=== PATIENT | female | born 1970 | race African-American/Black ===

== ENCOUNTER 2020-12-08 14:37 | Inpatient (IN) | payer OTHER ==
[~2020-12-08 14:37] MED LIST: ADMELOG100 UNIT/1 SC; FLEXERIL5 MG PO; HUMALOG 75100 UNIT/M SC; LANTUS **100 UNITS/ SC; LIPITOR40 MG PO; METFORMIN HCL500 MG PO; NEURONTIN300 MG PO; ONDANSETRON ODT4 MG PO; POTASSIUM 25 M25 MEQ PO; TRESIBA FL100 UNIT/1 SC; ZOFRAN8 MG PO
[2020-12-08 16:13] LABS: BASOPHIL 0.4 % (0-2); EOSINOPHIL 0.6 % (0-5); HCT 47.8 % (37.0-47.0); HGB 16.3 g/dl (12.5-16.0); MCHC 34.1 g/dL (32.0-36.0); NEUTROPHIL 46.9 % (41-80); NRBC 0; PLT 203 K/uL (150-400); RBC 5.43 M/uL (4.20-5.40); RDW 12.5 % (11.5-14.0); WBC 6.9 K/uL (4.0-10.5)
[2020-12-08 16:16] LABS: BILIRUBIN NEGATIVE (NEGATIVE); BLOOD NEGATIVE Ery/uL (NEGATIVE); CLARITY CLEAR (CLEAR); COLOR YELLOW (YELLOW); GLUCOSE (U) 3+ mg/dL (NORMAL); LEUKOCYTES NEGATIVE Leu/uL (NEGATIVE); NITRITE NEGATIVE (NEGATIVE); PROTEIN NEGATIVE (NEGATIVE); SPECIFIC GRAVITY <=1.005 (1.001-1.030); UROBILINOGEN 0.2 mg/dL (0.2-1.0)
[2020-12-08 17:15] LABS: ALBUMIN 3.8 g/dL (3.4-5.0); BILIRUBIN - TOTAL 0.8 mg/dL (0.2-1.0); CREATININE 0.79 mg/dL (0.51-0.95); GLOBULIN (CALCULATION) 3.6 g/dL; POTASSIUM 4.9 mmol/L (3.5-5.1); TOTAL PROTEIN 7.4 g/dL (6.4-8.2)
[2020-12-08 21:44] LABS: MAGNESIUM 2.2 mg/dL (1.8-2.4); PHOSPHORUS 4.2 mg/dL (2.6-4.7)
[2020-12-09 06:12] LABS: BASOPHIL 0.4 % (0-2); EOSINOPHIL 1.9 % (0-5); HCT 43.6 % (37.0-47.0); HGB 14.7 g/dl (12.5-16.0); MCH 29.5 pg (25.0-31.0); MCHC 33.7 g/dL (32.0-36.0); MCV 87.4 fL (78.0-100.0); MPV 12.2 fL (6.0-9.5); NRBC 0; PLT 188 K/uL (150-400); RBC 4.99 M/uL (4.20-5.40); RDW 12.4 % (11.5-14.0); WBC 6.8 K/uL (4.0-10.5)
[2020-12-09 06:19] LABS: LYMPHOCYTE 60.6 % (15-48)
[2020-12-09 06:30] LABS: BILIRUBIN - TOTAL 0.7 mg/dL (0.2-1.0); BUN/CREAT RATIO (CALC) 14.8 RATIO; CREATININE 0.54 mg/dL (0.51-0.95); GLOBULIN (CALCULATION) 2.4 g/dL; POTASSIUM 3.2 mmol/L (3.5-5.1); TOTAL PROTEIN 5.4 g/dL (6.4-8.2)
[2020-12-09] MEDS ORDERED: METFORMIN HCL500 M1 PO (11:28)
[2020-12-09] MEDS ORDERED: HUMALOG100 UNIT/3 SC (11:32)
--- NOTE | 2020-12-09 16:27 | NUR ---
PER SCOTT IRENE, PT WILL BE GIVEN A PRESCRIPTION FOR A GLUCOMETER AND NEEDLES. ADVISED HER THAT SHE CAN GO TO [facility] AND THEY HAVE METERS FOR $10.00
[2020-12-10 06:09] LABS: HCT 44.9 % (37.0-47.0); HGB 15.2 g/dl (12.5-16.0); MCHC 33.9 g/dL (32.0-36.0); MCV 88.6 fL (78.0-100.0); RBC 5.07 M/uL (4.20-5.40); RDW 12.6 % (11.5-14.0); WBC 5.6 K/uL (4.0-10.5)
[2020-12-10 06:42] LABS: BUN/CREAT RATIO (CALC) 16.7 RATIO; CREATININE 0.54 mg/dL (0.51-0.95); POTASSIUM 3.5 mmol/L (3.5-5.1)
[2020-12-10] MEDS ORDERED: ACCU-CHEK1 EACH SC (07:47)
[2020-12-10] MEDS ORDERED: NEEDLE1 EA11 SC (07:47)
[2020-12-10] MEDS ORDERED: ACCU-CHEK AVIV1 EAC2 SC (07:47)
== END 2020-12-10 08:30 | disposition home or self-care (01) | DRG 639 ==
LOC: FER 14:37 → FICU 17:29
PROVIDERS: Emergency Medicine; Nurse Practitioner; ADMIT Hospitalist
DX: E11.10 Type 2 diabetes mellitus with ketoacidosis without coma (principal); Z20.822 Contact with and (suspected) exposure to COVID-19; I10 Essential (primary) hypertension; E87.5 Hyperkalemia; E78.5 Hyperlipidemia, unspecified; Z79.4 Long term (current) use of insulin; Z98.890 Other specified postprocedural states; Z90.710 Acquired absence of both cervix and uterus; Z87.891 Personal history of nicotine dependence
CPT/HCPCS: 36415; 36600; 71045; 80048; 80053; 81003; 82009; 82803; 82962; 83735; 84100; 85025; 94010; C9113; J1650; J7030; U0002

== ENCOUNTER 2021-06-21 08:04 | Emergency (ER) | payer OTHER ==
[~2021-06-21 08:04] MED LIST changes: +ACCU-CHEK AVIV1 EAC2 SC; +ACCU-CHEK1 EACH SC; +HUMALOG100 UNIT/3 SC; +METFORMIN HCL500 M1 PO; +NEEDLE1 EA11 SC
[2021-06-21 08:30] LABS: BASOPHIL 0.6 % (0-2); EOSINOPHIL 1.1 % (0-5); HCT 49.3 % (37.0-47.0); HGB 16.8 g/dl (12.5-16.0); LYMPHOCYTE 52.1 % (15-48); MCH 29.9 pg (25.0-31.0); MCHC 34.1 g/dL (32.0-36.0); MCV 87.7 fL (78.0-100.0); MPV 10.8 fL (6.0-9.5); NRBC 0; PLT 257 K/uL (150-400); RBC 5.62 M/uL (4.20-5.40); RDW 13.3 % (11.5-14.0); WBC 8.8 K/uL (4.0-10.5)
[2021-06-21 08:51] LABS: BILIRUBIN - TOTAL 0.6 mg/dL (0.2-1.0); CREATININE 0.59 mg/dL (0.51-0.95); GLOBULIN (CALCULATION) 3.8 g/dL; POTASSIUM 3.6 mmol/L (3.5-5.1); TOTAL PROTEIN 7.8 g/dL (6.4-8.2)
[2021-06-21 10:07] LABS: CORONAVIRUS 2019 SARS-COV-2 NEGATIVE (NEGATIVE); INFLUENZA A NAA NEGATIVE (NEGATIVE)
[2021-06-21 10:09] LABS: BILIRUBIN 1+ mg/dL (NEGATIVE); BLOOD NEGATIVE Ery/uL (NEGATIVE); CLARITY CLEAR (CLEAR); COLOR YELLOW (YELLOW); GLUCOSE (U) 3+ mg/dL (NORMAL); LEUKOCYTES NEGATIVE Leu/uL (NEGATIVE); NITRITE NEGATIVE (NEGATIVE); PROTEIN NEGATIVE (NEGATIVE); SPECIFIC GRAVITY 1.015 (1.001-1.030); UROBILINOGEN 0.2 mg/dL (0.2-1.0); pH 5.5 (5.0-9.0)
[2021-06-21 10:15] LABS: BACTERIA 1+
[2021-06-21] MEDS ORDERED: ONDANSETRON ODT4 MG PO (10:56)
== END 2021-06-21 11:55 | disposition home or self-care (01) ==
LOC: FER 08:04
PROVIDERS: Emergency Medicine
DX: B34.9 Viral infection, unspecified (principal); E11.9 Type 2 diabetes mellitus without complications; Z79.4 Long term (current) use of insulin; Z20.822 Contact with and (suspected) exposure to COVID-19
CPT/HCPCS: 36415; 80053; 81001; 84484; 85025; 93005; J2405; J7030; Q9967; U0002

== ENCOUNTER 2022-01-06 11:17 | Emergency (ER) | payer OTHER ==
[2022-01-06 12:54] LABS: BILIRUBIN NEGATIVE (NEGATIVE); BLOOD NEGATIVE Ery/uL (NEGATIVE); CLARITY CLEAR (CLEAR); COLOR YELLOW (YELLOW); GLUCOSE (U) 3+ mg/dL (NORMAL); LEUKOCYTES NEGATIVE Leu/uL (NEGATIVE); NITRITE NEGATIVE (NEGATIVE); PROTEIN NEGATIVE (NEGATIVE); SPECIFIC GRAVITY >=1.030 (1.001-1.030); UROBILINOGEN 0.2 mg/dL (0.2-1.0)
[2022-01-06 13:10] LABS: BASOPHIL 0.4 % (0-2); EOSINOPHIL 1.1 % (0-5); HCT 46.4 % (37.0-47.0); HGB 15.6 g/dl (12.5-16.0); LYMPHOCYTE 47.5 % (15-48); MCH 29.4 pg (25.0-31.0); MCHC 33.6 g/dL (32.0-36.0); MCV 87.5 fL (78.0-100.0); MONOCYTE 6.5 % (0-12); MPV 10.1 fL (6.0-9.5); NEUTROPHIL 44.4 % (41-80); NRBC 0; PLT 239 K/uL (150-400); RDW 12.8 % (11.5-14.0)
[2022-01-06 13:25] LABS: ALBUMIN 3.5 g/dL (3.4-5.0); BILIRUBIN - TOTAL 0.6 mg/dL (0.2-1.0); BUN/CREAT RATIO (CALC) 20.5 RATIO; CREATININE 0.73 mg/dL (0.51-0.95); GLOBULIN (CALCULATION) 3.6 g/dL; POTASSIUM 3.9 mmol/L (3.5-5.1); TOTAL PROTEIN 7.1 g/dL (6.4-8.2)
[2022-01-06] MEDS ORDERED: ONDANSETRON ODT4 MG PO (15:43)
[2022-01-06] MEDS ORDERED: PANTOPRAZOLE SO40 MG PO (15:43)
== END 2022-01-06 16:14 | disposition home or self-care (01) ==
LOC: FER 11:17
PROVIDERS: Physician Assistant
DX: R10.13 Epigastric pain (principal); R11.0 Nausea; I10 Essential (primary) hypertension; F17.210 Nicotine dependence, cigarettes, uncomplicated; E78.5 Hyperlipidemia, unspecified; Z79.899 Other long term (current) drug therapy
CPT/HCPCS: 36415; 80053; 81001; 83690; 85025; 96372; J0500; J2405